=== PATIENT | female | born 1945 | race Caucasian/White ===

== ENCOUNTER 2017-02-21 23:19 | Emergency (ER) | payer OTHER, BC ==
[~2017-02-21] VITALS: Ht 167.6 cm; Wt 81.9 kg
[2017-02-22 00:31] LABS: HEMATOCRIT 43.3 % (36.0-46.0); MCH 31.1 PG (29.0-34.0); MCHC 34.4 G/DL (30.0-36.0); MCV 90.4 FL (83-99); RBC DIS.WIDTH-SD 39.8 % (39-53); RED BLOOD COUNT 4.79 M/uL (3.80-5.20); WHITE BLOOD COUNT 7.1 K/uL (4.1-10.2)
[2017-02-22 00:43] LABS: CHLORIDE 109 mEq/L (99-109); POTASSIUM 4.2 mEq/L (3.7-5.4); SODIUM 142 mEq/L (136-147)
[2017-02-22 00:44] LABS: GLUCOSE 134 mg/dL (70-99)
[2017-02-22 00:45] LABS: ANION GAP 10 MEQ/L (2-14); PROTHROMBIN TIME 10.4 (9.2-11.2); PTT 27.2 (25-32)
[2017-02-22 00:46] LABS: TOTAL BILIRUBIN 0.4 mg/dL (0.0-1.0)
[2017-02-22 00:47] LABS: ALKALINE PHOSPHATASE 72 IU/L (3-129); GFR ESTIMATE (CALCULATED) > 59 mL/min/
[2017-02-22 00:48] LABS: UREA NITROGEN (BUN) 10 mg/dL (9-23)
[2017-02-22 00:53] LABS: TROP-I INTERPRETATION NEGATIVE; TROPONIN-I < 0.01 ng/mL (0.0-0.30)
[2017-02-22] MEDS ORDERED: LISINOPRIL10 MG PO (00:59)
[2017-02-22 01:14] LABS: HEMATOLOGY COMMENT 1 SN; PLAT.SUFFICIENCY ADEQUATE; PLATELET COUNT UNABLE TO REPORT K/uL (156-360)
[2017-02-22 01:22] LABS: PLATELET CLUMPS PRESENT - PLATELET C
[2017-02-22 02:01] VITALS: BP 139/79
== END 2017-02-22 02:19 | disposition home or self-care (01) ==
LOC: EME 23:19
PROVIDERS: Emergency Medicine
DX: I10 Essential (primary) hypertension (principal)
CPT/HCPCS: 70450; 80053; 81003; 84484; 85027; 85610; 85730; 93005; 99281; 99284